=== PATIENT | female | born 1975 | race African-American/Black ===

== ENCOUNTER 2016-08-19 07:22 | Inpatient (IN) | payer MEDICAID ==
[~2016-08-19] VITALS: Ht 162.6 cm; Wt 63.3 kg
[2016-08-19 08:30] LABS: Basophils # (auto) 0 uL; Basophils % (auto) 0.1 % (0.0-2.0); Eosinophils # (auto) 0 uL; Eosinophils % (auto) 0.2 % (0.0-7.0); Hematocrit 44.9 % (36.0-46.0); Hemoglobin 14.6 g/dL (12.2-16.2); Lymphocytes # (auto) 2.4 uL; Lymphocytes % (auto) 15.3 % (10.0-50.0); Mean Corpuscular Hemoglobin 30.6 pg (28.0-32.0); Mean Corpuscular Hgb Conc. 32.5 g/dL (32.0-36.0); Mean Corpuscular Volume 94.3 fL (80.0-100.0); Mean Platelet Volume 7.9 fL (7.4-10.4); Monocytes # (auto) 0.8 uL; Neutrophils # (auto) 12.6 uL; Neutrophils % (auto) 79.4 % (37.0-80.0); Platelet Count (auto) 374 10^3/uL (140-450); Red Cell Distribution Width 13.6 % (11.6-16.0); White Blood Cell 15.9 10^3/uL (4.4-10.8)
[2016-08-19 08:48] LABS: Albumin 4.2 g/dL (3.4-5.0); BUN/Creatinine Ratio 12.3; Calcium 8.8 mg/dL (8.5-10.1); Magnesium 2.3 mg/dL (1.6-2.6); Potassium 4.1 mmol/L (3.5-5.1)
[2016-08-19 08:51] LABS: Bilirubin, Total 0.8 mg/dL (0.2-1.0); Total Protein 8.5 g/dL (6.4-8.2)
[2016-08-19] MEDS ORDERED: PANTOPRAZOLE SODIUM 40 MG/10 ML VIAL IV ONE (11:30)
[2016-08-19] MEDS ORDERED: LEVOFLOXACIN 500MG 100 ML IV ONE (11:30)
[2016-08-19] MEDS ORDERED: SODIUM CHLORIDE 0.9% 1,000 ML IV ONE ×2 (11:30)
[2016-08-19] MEDS ORDERED: HYDROmorphone HCL 2 MG/ML VL IV ONE (11:30)
[2016-08-19] MEDS ORDERED: ONDANSETRON HCL 4 MG/2 ML VIAL IV ONE (11:30)
[2016-08-19 11:51] LABS: Urine Bilirubin Negative (Negative); Urine Color Yellow (Yellow); Urine Glucose Normal (Normal); Urine Mucus FEW (None Seen); Urine Nitrite Negative (Negative); Urine RBC 3 /hpf (0 - 4); Urine Squamous Epithelial Cell FEW /hpf (<5); Urine Urobilinogen Normal (Negative); Urine pH 5.5 (5.0-8.0)
[2016-08-19 11:53] LABS: Urine Blood 2+ /uL (Negative); Urine Ketone 4+ (Negative)
[2016-08-19] MEDS ORDERED: chlordiazePOXIDE HCL 25 MG CAP PO PRN (13:45)
[2016-08-19] MEDS: SODIUM CHLORIDE 0.9% 1,000 ML IV SCH ×2 (13:47→22:26)
[2016-08-19] MEDS ORDERED: TEMAZEPAM 15 MG CAP PO PRN (14:00)
[2016-08-19] MEDS ORDERED: NITROGLYCERIN 0.4 MG SL TAB SL PRN (14:00)
[2016-08-19] MEDS ORDERED: MORPHINE SULF INJ 2 MG/ML SYRINGE 1ML IV PRN (14:00)
[2016-08-19] MEDS ORDERED: PHYTONADIONE (VIT K)10 MG/ML 1ML VIAL SUBCUT ONE (14:00)
[2016-08-19] MEDS ORDERED: ONDANSETRON HCL 4 MG/2 ML VIAL IV PRN (14:00)
[2016-08-19] MEDS ORDERED: DOCUSATE SOD 100 MG CAP PO PRN (14:00)
[2016-08-19] MEDS ORDERED: ACETAMINOPHEN 325 MG TAB PO PRN (14:00)
[2016-08-19] MEDS: metroNIDAZOLE 500MG/100ML 100 ML IV SCH ×2 (14:51→22:25)
[2016-08-19] MEDS ORDERED: THIAMINE INJ 100 MG, MULTIPLE VITAMIN 10 ML, FOLIC ACID 1 MG, MAGNESIUM SULF SDV 50% 8 ... IV ONE ×5 (15:00)
[2016-08-19] MEDS: MORPHINE SULF INJ 2 MG/ML SYRINGE 1ML IV PRN ×2 (16:29→20:55)
[2016-08-19 16:57] VITALS: BP 125/79
[2016-08-19 22:00] VITALS: BP 129/84
[2016-08-19] MEDS: FAMOTIDINE 20 MG TAB PO SCH (22:25)
[2016-08-20] MEDS: MORPHINE SULF INJ 2 MG/ML SYRINGE 1ML IV PRN ×5 (02:16→23:18)
[2016-08-20] MEDS ORDERED: INFLUENZA QUAD 2016-2017 0.5 ML SYRG IM ONE (02:45)
[2016-08-20 05:00] VITALS: BP 112/72
[2016-08-20] MEDS: SODIUM CHLORIDE 0.9% 1,000 ML IV SCH ×3 (05:01→23:19)
[2016-08-20] MEDS: metroNIDAZOLE 500MG/100ML 100 ML IV SCH ×3 (05:42→21:31)
[2016-08-20 06:31] LABS: Basophils # (auto) 0 uL; Basophils % (auto) 0.3 % (0.0-2.0); Eosinophils # (auto) 0.1 uL; Eosinophils % (auto) 0.9 % (0.0-7.0); Hematocrit 35.5 % (36.0-46.0); Hemoglobin 11.9 g/dL (12.2-16.2); Lymphocytes # (auto) 1.8 uL; Lymphocytes % (auto) 21.1 % (10.0-50.0); Mean Corpuscular Hgb Conc. 33.4 g/dL (32.0-36.0); Mean Corpuscular Volume 92.7 fL (80.0-100.0); Mean Platelet Volume 8.1 fL (7.4-10.4); Monocytes # (auto) 0.6 uL; Monocytes % (auto) 6.6 % (0.0-12.0); Neutrophils # (auto) 6.2 uL; Neutrophils % (auto) 71.1 % (37.0-80.0); Platelet Count (auto) 310 10^3/uL (140-450); Red Cell Distribution Width 13.8 % (11.6-16.0); White Blood Cell 8.6 10^3/uL (4.4-10.8)
[2016-08-20 06:43] LABS: Albumin 3.3 g/dL (3.4-5.0); BUN/Creatinine Ratio 11.1; Bilirubin, Total 0.8 mg/dL (0.2-1.0); Potassium 4.3 mmol/L (3.5-5.1); Total Protein 6.3 g/dL (6.4-8.2)
[2016-08-20 09:00] VITALS: BP 116/84
[2016-08-20] MEDS: LEVOFLOXACIN 500MG 100 ML IV SCH (10:57)
[2016-08-20] MEDS: FAMOTIDINE 20 MG TAB PO SCH ×2 (10:57→21:31)
[2016-08-20] MEDS: MULTIPLE VITAMIN TAB PO SCH (10:57)
[2016-08-20 13:00] VITALS: BP 125/85
[2016-08-20] MEDS: HYDROcodone-ACET 5/325MG TAB PO PRN ×2 (16:14→20:49)
[2016-08-20 16:44] LABS: Amylase 81 U/L (25-115)
[2016-08-20 17:03] VITALS: BP 115/80
[2016-08-20 22:00] VITALS: BP 113/78
[2016-08-21] MEDS: MORPHINE SULF INJ 2 MG/ML SYRINGE 1ML IV PRN (04:27)
[2016-08-21 05:00] VITALS: BP 130/80
[2016-08-21] MEDS: metroNIDAZOLE 500MG/100ML 100 ML IV SCH (06:17)
[2016-08-21 06:44] LABS: Basophils # (auto) 0 uL; Basophils % (auto) 0.5 % (0.0-2.0); Eosinophils # (auto) 0.1 uL; Eosinophils % (auto) 1.3 % (0.0-7.0); Hematocrit 34.9 % (36.0-46.0); Hemoglobin 11.4 g/dL (12.2-16.2); Lymphocytes % (auto) 25.8 % (10.0-50.0); Mean Corpuscular Hemoglobin 30.5 pg (28.0-32.0); Mean Corpuscular Hgb Conc. 32.6 g/dL (32.0-36.0); Mean Corpuscular Volume 93.6 fL (80.0-100.0); Mean Platelet Volume 7.9 fL (7.4-10.4); Monocytes # (auto) 0.7 uL; Monocytes % (auto) 8.7 % (0.0-12.0); Neutrophils # (auto) 4.8 uL; Neutrophils % (auto) 63.7 % (37.0-80.0); Platelet Count (auto) 308 10^3/uL (140-450); Red Cell Distribution Width 13.9 % (11.6-16.0); White Blood Cell 7.6 10^3/uL (4.4-10.8)
[2016-08-21 07:11] LABS: Albumin 3.4 g/dL (3.4-5.0); BUN/Creatinine Ratio 5.9; Bilirubin, Total 0.9 mg/dL (0.2-1.0); Calcium 8.4 mg/dL (8.5-10.1); Potassium 4.3 mmol/L (3.5-5.1); Total Protein 6.5 g/dL (6.4-8.2)
[2016-08-21] MEDS: SODIUM CHLORIDE 0.9% 1,000 ML IV SCH (07:27)
[2016-08-21] MEDS: LEVOFLOXACIN 500MG 100 ML IV SCH (10:00)
[2016-08-21] MEDS: HYDROcodone-ACET 5/325MG TAB PO PRN (10:20)
[2016-08-21] MEDS: FAMOTIDINE 20 MG TAB PO SCH (10:21)
[2016-08-21] MEDS: MULTIPLE VITAMIN TAB PO SCH (10:21)
[2016-08-21 10:58] VITALS: BP 91/71
== END 2016-08-21 11:41 | disposition home or self-care (01) | DRG 282 ==
LOC: EDAGE 07:22 → EDUNIT# 07:22 → ER 07:30 → TELE 07:31 → TELE-EAST 16:11
PROVIDERS: ADMIT Internal Medicine; ATTEND Internal Medicine
DX: K85.90 Acute pancreatitis without necrosis or infection, unspecified (principal); R18.8 Other ascites; Z88.0 Allergy status to penicillin; E87.1 Hypo-osmolality and hyponatremia; N39.0 Urinary tract infection, site not specified; F17.210 Nicotine dependence, cigarettes, uncomplicated; Z90.49 Acquired absence of other specified parts of digestive tract; Z82.49 Family history of ischemic heart disease and other diseases of the circulatory system; Z84.89 Family history of other specified conditions; F10.239 Alcohol dependence with withdrawal, unspecified
CPT/HCPCS: 36415; 74176; 80053; 80320; 81001; 81025; 82150; 83605; 83690; 83735; 85025; 87086; 93306; 96361; 96365; 96367; 96372; 96375; 99291; C9113; J1956; J2405; J3430; J3490

== ENCOUNTER 2018-01-07 14:33 | Inpatient (IN) | payer MEDICAID ==
[~2018-01-07] VITALS: Ht 162.6 cm; Wt 77.4 kg
[2018-01-07] MEDS ORDERED: PANTOPRAZOLE 40 MG/10 ML VIAL IV STA (14:42)
[2018-01-07] MEDS ORDERED: SODIUM CHLORIDE 0.9% 500 ML IVB ONE (14:42)
[2018-01-07] MEDS ORDERED: HYDROmorphone HCL 2 MG/ML VL IV ONE (14:45)
[2018-01-07] MEDS ORDERED: ONDANSETRON HCL 4 MG/2 ML VIAL IV ONE (14:45)
[2018-01-07 15:14] LABS: Basophils # (auto) 0.3 uL; Basophils % (auto) 1.5 % (0.0-2.0); Eosinophils # (auto) 0 uL; Eosinophils % (auto) 0.1 % (0.0-7.0); Hematocrit 44.4 % (36.0-46.0); Hemoglobin 14.6 g/dL (12.2-16.2); Lymphocytes # (auto) 0.9 uL; Lymphocytes % (auto) 5.3 % (10.0-50.0); Mean Corpuscular Hemoglobin 28.7 pg (28.0-32.0); Mean Corpuscular Hgb Conc. 32.9 g/dL (32.0-36.0); Mean Corpuscular Volume 87.2 fL (80.0-100.0); Monocytes # (auto) 0.4 uL; Monocytes % (auto) 2.5 % (0.0-12.0); Neutrophils # (auto) 15.9 uL; Neutrophils % (auto) 90.6 % (37.0-80.0); Nucleated Red Blood Cells % 0.1 %; Platelet Count (auto) 384 10^3/uL (140-450); Red Blood Cells 5.09 10^6/uL (4.0-5.20); Red Cell Distribution Width 15.1 % (11.8-14.3); White Blood Cell 17.5 10^3/uL (4.4-10.8)
[2018-01-07 15:37] LABS: Albumin 3.9 g/dL (3.4-5.0); Bilirubin, Total 2.8 mg/dL (0.2-1.0); Magnesium 2.4 mg/dL (1.6-2.6); Potassium 5.5 mmol/L (3.5-5.1); Total Protein 8.1 g/dL (6.4-8.2)
[2018-01-07] MEDS ORDERED: SODIUM POLYSTYRENE SULF 15GM/60ML SUSP PO ONE (19:30)
[2018-01-07] MEDS ORDERED: DEXTROSE (50%) 50ML SYRG IV PRN (19:30)
[2018-01-07] MEDS ORDERED: LEVOFLOXACIN 500MG 100 ML IV ONE (19:30)
[2018-01-07] MEDS ORDERED: TEMAZEPAM 15 MG CAP PO PRN (19:45)
[2018-01-07] MEDS ORDERED: ACETAMINOPHEN 325 MG TAB PO PRN (19:45)
[2018-01-07] MEDS ORDERED: MORPHINE SULFATE 8mg/ml INJ SDV IV PRN (19:45)
[2018-01-07] MEDS ORDERED: NITROGLYCERIN 0.4 MG SL TAB SL PRN (19:45)
[2018-01-07] MEDS: MORPHINE SULFATE 8mg/ml INJ SDV IV PRN (20:09)
[2018-01-07] MEDS: SODIUM CHLORIDE 0.9% 1,000 ML IV SCH (20:10)
[2018-01-07] MEDS: ONDANSETRON HCL 4 MG/2 ML VIAL IV PRN (20:10)
[2018-01-07 21:30] VITALS: BP 128/85
[2018-01-07 21:56] VITALS: BP 128/85
[2018-01-07] MEDS: ACCU-CHEK COMFORT CURVE STRIP VI SCH (22:00)
[2018-01-07] MEDS: traZODone HCL 50 MG TAB PO SCH (22:36)
[2018-01-07] MEDS: FAMOTIDINE 20 MG TAB PO SCH (22:36)
[2018-01-07] MEDS: InsuLIN REG 1unit/0.01ml Soln (100units/ml) SC SCH (22:41)
[2018-01-08] MEDS: ONDANSETRON HCL 4 MG/2 ML VIAL IV PRN ×5 (00:25→21:54)
[2018-01-08] MEDS: MORPHINE SULFATE 8mg/ml INJ SDV IV PRN ×5 (00:26→21:38)
[2018-01-08 04:37] VITALS: BP 127/72
[2018-01-08] MEDS: SODIUM CHLORIDE 0.9% 1,000 ML IV SCH ×3 (05:15→21:26)
[2018-01-08 05:46] LABS: Urine Bacteria FEW /hpf (None Seen); Urine Blood 2+ /uL (Negative); Urine Budding Yeast OCCASIONAL /hpf (None Seen); Urine Hyaline Cast FEW /lpf (0 - 2); Urine Mucus FEW (None Seen); Urine Specific Gravity 1.023 (1.001-1.035); Urine WBC 11 /hpf (0 - 5)
[2018-01-08] MEDS: ACCU-CHEK COMFORT CURVE STRIP VI SCH ×4 (06:14→21:25)
[2018-01-08] MEDS: InsuLIN REG 1unit/0.01ml Soln (100units/ml) SC SCH ×4 (06:14→21:27)
[2018-01-08 06:38] LABS: Basophils # (auto) 0 uL; Basophils % (auto) 0.1 % (0.0-2.0); Eosinophils # (auto) 0 uL; Eosinophils % (auto) 0.1 % (0.0-7.0); Hematocrit 39.3 % (36.0-46.0); Hemoglobin 13.2 g/dL (12.2-16.2); Lymphocytes # (auto) 1.6 uL; Lymphocytes % (auto) 10.1 % (10.0-50.0); Mean Corpuscular Hemoglobin 29.2 pg (28.0-32.0); Mean Corpuscular Hgb Conc. 33.6 g/dL (32.0-36.0); Mean Corpuscular Volume 86.8 fL (80.0-100.0); Monocytes % (auto) 5.9 % (0.0-12.0); Neutrophils # (auto) 13.4 uL; Neutrophils % (auto) 83.8 % (37.0-80.0); Platelet Count (auto) 378 10^3/uL (140-450); Red Blood Cells 4.53 10^6/uL (4.0-5.20); Red Cell Distribution Width 14.8 % (11.8-14.3)
[2018-01-08 06:57] LABS: Potassium 3.7 mmol/L (3.5-5.1)
[2018-01-08 07:01] LABS: Albumin 3.4 g/dL (3.4-5.0); BUN/Creatinine Ratio 10.1; Calcium 8.1 mg/dL (8.5-10.1)
[2018-01-08 07:05] LABS: Bilirubin, Total 3.7 mg/dL (0.2-1.0); Total Protein 7.2 g/dL (6.4-8.2)
[2018-01-08 09:00] VITALS: BP 139/83
[2018-01-08] MEDS: FAMOTIDINE 20 MG TAB PO SCH ×2 (10:05→21:25)
[2018-01-08] MEDS: MULTIPLE VITAMIN TAB PO SCH (10:05)
[2018-01-08] MEDS: LEVOFLOXACIN 500MG 100 ML IV SCH (10:06)
[2018-01-08] MEDS: HYDROcodone-ACET 5/325MG TAB PO PRN ×2 (11:56→19:55)
[2018-01-08 12:10] VITALS: BP 130/78
[2018-01-08 17:10] VITALS: BP 130/92
[2018-01-08] MEDS: DOCUSATE SOD 100 MG CAP PO PRN (19:55)
[2018-01-08] MEDS: traZODone HCL 50 MG TAB PO SCH (21:25)
[2018-01-08 22:00] VITALS: BP 132/74
[2018-01-09] MEDS: HYDROcodone-ACET 5/325MG TAB PO PRN ×4 (00:58→21:26)
[2018-01-09 05:00] VITALS: BP 133/72
[2018-01-09] MEDS: SODIUM CHLORIDE 0.9% 1,000 ML IV SCH ×3 (06:15→23:22)
[2018-01-09] MEDS: InsuLIN REG 1unit/0.01ml Soln (100units/ml) SC SCH ×4 (06:15→22:00)
[2018-01-09] MEDS: ACCU-CHEK COMFORT CURVE STRIP VI SCH ×4 (06:16→23:23)
[2018-01-09 06:24] LABS: Basophils # (auto) 0 uL; Basophils % (auto) 0.4 % (0.0-2.0); Eosinophils # (auto) 0.1 uL; Hematocrit 37.7 % (36.0-46.0); Hemoglobin 12.7 g/dL (12.2-16.2); Lymphocytes # (auto) 2.5 uL; Lymphocytes % (auto) 24.2 % (10.0-50.0); Mean Corpuscular Hemoglobin 29.5 pg (28.0-32.0); Mean Corpuscular Hgb Conc. 33.7 g/dL (32.0-36.0); Mean Corpuscular Volume 87.5 fL (80.0-100.0); Monocytes # (auto) 0.7 uL; Monocytes % (auto) 6.8 % (0.0-12.0); Neutrophils % (auto) 67.6 % (37.0-80.0); Nucleated Red Blood Cells % 0.1 %; Platelet Count (auto) 354 10^3/uL (140-450); Red Blood Cells 4.31 10^6/uL (4.0-5.20); Red Cell Distribution Width 14.7 % (11.8-14.3); White Blood Cell 10.4 10^3/uL (4.4-10.8)
[2018-01-09 06:41] LABS: Potassium 3.7 mmol/L (3.5-5.1)
[2018-01-09 06:50] LABS: BUN/Creatinine Ratio 4.8; Calcium 8.1 mg/dL (8.5-10.1)
[2018-01-09 07:45] VITALS: BP 133/72
[2018-01-09] MEDS: MORPHINE SULFATE 8mg/ml INJ SDV IV PRN (08:16)
[2018-01-09] MEDS: ONDANSETRON HCL 4 MG/2 ML VIAL IV PRN ×3 (08:22→23:24)
[2018-01-09 08:37] VITALS: BP 136/78
[2018-01-09] MEDS: MULTIPLE VITAMIN TAB PO SCH (09:58)
[2018-01-09] MEDS: FAMOTIDINE 20 MG TAB PO SCH ×2 (09:58→23:23)
[2018-01-09] MEDS: LEVOFLOXACIN 500MG 100 ML IV SCH (09:58)
[2018-01-09 13:04] VITALS: BP 120/78
[2018-01-09] MEDS ORDERED: LORazepam 2MG/ML-1ML VIAL IV ONE (16:00)
[2018-01-09 17:00] VITALS: BP 128/87
[2018-01-09] MEDS: DOCUSATE SOD 100 MG CAP PO PRN (17:57)
[2018-01-09] MEDS ORDERED: MORPHINE SULFATE 10 MG/ML INJ 1ML SDV IV PRN (18:00)
[2018-01-09] MEDS: MORPHINE SULFATE 10 MG/ML INJ 1ML SDV IV PRN ×2 (18:40→23:26)
[2018-01-09 22:00] VITALS: BP 124/80
[2018-01-09] MEDS: traZODone HCL 50 MG TAB PO SCH (23:22)
[2018-01-10] MEDS: HYDROcodone-ACET 5/325MG TAB PO PRN (02:38)
[2018-01-10 05:00] VITALS: BP 110/75
[2018-01-10 06:09] LABS: Basophils # (auto) 0 uL; Basophils % (auto) 0.5 % (0.0-2.0); Eosinophils # (auto) 0.1 uL; Eosinophils % (auto) 0.8 % (0.0-7.0); Hemoglobin 12.3 g/dL (12.2-16.2); Lymphocytes # (auto) 1.8 uL; Lymphocytes % (auto) 17.7 % (10.0-50.0); Mean Corpuscular Hemoglobin 28.9 pg (28.0-32.0); Mean Corpuscular Hgb Conc. 33.2 g/dL (32.0-36.0); Mean Corpuscular Volume 86.9 fL (80.0-100.0); Monocytes # (auto) 0.4 uL; Monocytes % (auto) 4.2 % (0.0-12.0); Neutrophils # (auto) 7.8 uL; Neutrophils % (auto) 76.8 % (37.0-80.0); Platelet Count (auto) 325 10^3/uL (140-450); Red Blood Cells 4.26 10^6/uL (4.0-5.20); Red Cell Distribution Width 14.5 % (11.8-14.3); White Blood Cell 10.1 10^3/uL (4.4-10.8)
[2018-01-10 06:31] LABS: Albumin 3.1 g/dL (3.4-5.0); BUN/Creatinine Ratio 5.3; Bilirubin, Total 4.8 mg/dL (0.2-1.0); Calcium 8.2 mg/dL (8.5-10.1); Potassium 3.8 mmol/L (3.5-5.1); Total Protein 6.4 g/dL (6.4-8.2)
[2018-01-10] MEDS: InsuLIN REG 1unit/0.01ml Soln (100units/ml) SC SCH ×4 (06:50→22:00)
[2018-01-10] MEDS: ACCU-CHEK COMFORT CURVE STRIP VI SCH ×4 (06:50→22:15)
[2018-01-10] MEDS: SODIUM CHLORIDE 0.9% 1,000 ML IV SCH ×2 (06:50→14:43)
[2018-01-10] MEDS: ONDANSETRON HCL 4 MG/2 ML VIAL IV PRN (08:15)
[2018-01-10] MEDS: MORPHINE SULFATE 10 MG/ML INJ 1ML SDV IV PRN ×3 (08:15→20:31)
[2018-01-10] MEDS: MULTIPLE VITAMIN TAB PO SCH (09:34)
[2018-01-10] MEDS: FAMOTIDINE 20 MG TAB PO SCH ×2 (09:34→20:30)
[2018-01-10] MEDS: LEVOFLOXACIN 500MG 100 ML IV SCH (09:34)
[2018-01-10 09:43] VITALS: BP 122/72
[2018-01-10 13:26] VITALS: BP 110/79
[2018-01-10 17:09] VITALS: BP 129/90
[2018-01-10] MEDS: traZODone HCL 50 MG TAB PO SCH (20:30)
[2018-01-10 22:00] VITALS: BP 115/82
[2018-01-11] MEDS: MORPHINE SULFATE 10 MG/ML INJ 1ML SDV IV PRN ×3 (01:18→23:34)
[2018-01-11] MEDS: SODIUM CHLORIDE 0.9% 1,000 ML IV SCH ×4 (01:18→23:34)
[2018-01-11 05:00] VITALS: BP 127/82
[2018-01-11 06:06] LABS: Basophils # (auto) 0 uL; Basophils % (auto) 0.3 % (0.0-2.0); Eosinophils # (auto) 0.2 uL; Hematocrit 35.1 % (36.0-46.0); Lymphocytes # (auto) 2.6 uL; Lymphocytes % (auto) 24.3 % (10.0-50.0); Mean Corpuscular Hemoglobin 29.5 pg (28.0-32.0); Mean Corpuscular Volume 86.7 fL (80.0-100.0); Monocytes # (auto) 0.7 uL; Monocytes % (auto) 6.6 % (0.0-12.0); Neutrophils # (auto) 7.2 uL; Neutrophils % (auto) 66.8 % (37.0-80.0); Nucleated Red Blood Cells % 0.1 %; Platelet Count (auto) 320 10^3/uL (140-450); Red Blood Cells 4.06 10^6/uL (4.0-5.20); Red Cell Distribution Width 14.7 % (11.8-14.3); White Blood Cell 10.8 10^3/uL (4.4-10.8)
[2018-01-11 06:25] LABS: Potassium 3.5 mmol/L (3.5-5.1)
[2018-01-11] MEDS: ACCU-CHEK COMFORT CURVE STRIP VI SCH ×4 (06:28→22:00)
[2018-01-11] MEDS: InsuLIN REG 1unit/0.01ml Soln (100units/ml) SC SCH ×4 (06:28→22:00)
[2018-01-11 06:33] LABS: Albumin 2.9 g/dL (3.4-5.0); BUN/Creatinine Ratio 3.9; Bilirubin, Total 3.2 mg/dL (0.2-1.0); Calcium 8.3 mg/dL (8.5-10.1); Total Protein 6.3 g/dL (6.4-8.2)
[2018-01-11 09:00] VITALS: BP 105/59
[2018-01-11] MEDS: LEVOFLOXACIN 500MG 100 ML IV SCH (10:43)
[2018-01-11] MEDS: FAMOTIDINE 20 MG TAB PO SCH ×2 (10:44→23:32)
[2018-01-11] MEDS: MULTIPLE VITAMIN TAB PO SCH (10:44)
[2018-01-11] MEDS: HYDROcodone-ACET 5/325MG TAB PO PRN ×2 (10:44→15:13)
[2018-01-11 13:00] VITALS: BP 120/86
[2018-01-11 17:00] VITALS: BP 118/79
[2018-01-11 22:00] VITALS: BP 119/68
[2018-01-11] MEDS: traZODone HCL 50 MG TAB PO SCH (23:33)
[2018-01-12 05:00] VITALS: BP 108/63
[2018-01-12 05:18] LABS: Basophils # (auto) 0 uL; Basophils % (auto) 0.4 % (0.0-2.0); Eosinophils # (auto) 0.2 uL; Eosinophils % (auto) 1.8 % (0.0-7.0); Hematocrit 36.1 % (36.0-46.0); Hemoglobin 12.1 g/dL (12.2-16.2); Lymphocytes # (auto) 3.4 uL; Lymphocytes % (auto) 30.1 % (10.0-50.0); Mean Corpuscular Hemoglobin 29.2 pg (28.0-32.0); Mean Corpuscular Hgb Conc. 33.6 g/dL (32.0-36.0); Mean Corpuscular Volume 86.9 fL (80.0-100.0); Monocytes # (auto) 0.6 uL; Monocytes % (auto) 5.5 % (0.0-12.0); Neutrophils % (auto) 62.2 % (37.0-80.0); Platelet Count (auto) 321 10^3/uL (140-450); Red Blood Cells 4.16 10^6/uL (4.0-5.20); Red Cell Distribution Width 14.9 % (11.8-14.3); White Blood Cell 11.3 10^3/uL (4.4-10.8)
[2018-01-12 05:35] LABS: BUN/Creatinine Ratio 9.3; Bilirubin, Total 1.9 mg/dL (0.2-1.0); Calcium 8.1 mg/dL (8.5-10.1); Potassium 3.4 mmol/L (3.5-5.1); Total Protein 6.5 g/dL (6.4-8.2)
[2018-01-12] MEDS: ACCU-CHEK COMFORT CURVE STRIP VI SCH (07:00)
[2018-01-12] MEDS: InsuLIN REG 1unit/0.01ml Soln (100units/ml) SC SCH (07:00)
[2018-01-12 09:00] VITALS: BP 105/72
[2018-01-12] MEDS: MULTIPLE VITAMIN TAB PO SCH (11:14)
[2018-01-12] MEDS: HYDROcodone-ACET 5/325MG TAB PO PRN (11:15)
[2018-01-12] MEDS: FAMOTIDINE 20 MG TAB PO SCH (11:15)
[2018-01-12 11:33] VITALS: BP 105/72
[2018-01-12 13:00] VITALS: BP 121/59
== END 2018-01-12 14:34 | disposition home or self-care (01) | DRG 282 ==
LOC: EDBD 14:33 → ER 14:33 → EDUNIT# 14:33 → TELE 14:34 → TELE-WESTW 20:58 → WEST WING 01-10 23:56
PROVIDERS: ADMIT Internal Medicine; ATTEND Internal Medicine
DX: K85.20 Alcohol induced acute pancreatitis without necrosis or infection (principal); E11.21 Type 2 diabetes mellitus with diabetic nephropathy; E11.65 Type 2 diabetes mellitus with hyperglycemia; E87.5 Hyperkalemia; K86.89 Other specified diseases of pancreas; E87.1 Hypo-osmolality and hyponatremia; E11.22 Type 2 diabetes mellitus with diabetic chronic kidney disease; F17.210 Nicotine dependence, cigarettes, uncomplicated; F41.9 Anxiety disorder, unspecified; N18.2 Chronic kidney disease, stage 2 (mild); F32.9 Major depressive disorder, single episode, unspecified; R94.5 Abnormal results of liver function studies; Z88.0 Allergy status to penicillin; Z90.49 Acquired absence of other specified parts of digestive tract
CPT/HCPCS: 36415; 74176; 74181; 80048; 80053; 81001; 82150; 82962; 83036; 83690; 83735; 85025; 87086; 94761; 96374; 96375; C9113; J1815; J1956; J2270; J2405

== ENCOUNTER 2018-08-28 14:56 | Inpatient (IN) | payer MEDICAID | END 2018-08-30 01:00 | disposition short-term general hospital (02) | LOC: ER 14:56 → OVERFLOW 20:42 → EAST 23:29 | DX: K85.20 Alcohol induced acute pancreatitis without necrosis or infection (principal) ==

== ENCOUNTER 2018-09-29 21:11 | Emergency (ER) | payer MEDICAID ==
[~2018-09-29] VITALS: Ht 165.1 cm; Wt 68.0 kg
[~2018-09-29 21:11] MED LIST: HYDR-3682 PO; IBUP800T24 PO; METF-370 PO; METH750T3 PO
[2018-09-29] MEDS ORDERED: SODIUM CHLORIDE 0.9% 1,000 ML IVB ONE (21:54)
[2018-09-29 21:58] LABS: Basophils # (auto) 0.1 uL; Basophils % (auto) 0.5 % (0.0-2.0); Eosinophils # (auto) 0.1 uL; Eosinophils % (auto) 0.4 % (0.0-7.0); Hematocrit 40.1 % (36.0-46.0); Hemoglobin 13.2 g/dL (12.2-16.2); Lymphocytes # (auto) 4.1 uL; Lymphocytes % (auto) 29.6 % (10.0-50.0); Mean Corpuscular Hemoglobin 27.7 pg (28.0-32.0); Mean Corpuscular Hgb Conc. 32.9 g/dL (32.0-36.0); Mean Corpuscular Volume 84.4 fL (80.0-100.0); Monocytes # (auto) 0.9 uL; Monocytes % (auto) 6.4 % (0.0-12.0); Neutrophils # (auto) 8.7 uL; Neutrophils % (auto) 63.1 % (37.0-80.0); Platelet Count (auto) 386 10^3/uL (140-450); Red Blood Cells 4.74 10^6/uL (4.0-5.20); Red Cell Distribution Width 14.1 % (11.8-14.3); White Blood Cell 13.8 10^3/uL (4.4-10.8)
[2018-09-29] MEDS ORDERED: HYDROmorphone HCL 2 MG/ML VL IV ONE (22:00)
[2018-09-29] MEDS ORDERED: ONDANSETRON HCL 4 MG/2 ML VIAL IV ONE (22:00)
[2018-09-29 22:19] LABS: Albumin 3.5 g/dL (3.4-5.0); Calcium 8.5 mg/dL (8.5-10.1); Potassium 3.4 mmol/L (3.5-5.1)
[2018-09-29 22:22] LABS: BUN/Creatinine Ratio 7.1; Bilirubin, Total 0.5 mg/dL (0.2-1.0); Total Protein 7.4 g/dL (6.4-8.2)
[2018-09-29 23:01] LABS: INR 0.94 (0.9-1.15); Partial Thromboplastin Time 25.3 sec (23.78-33.04); Prothrombin Time 10.1 sec (9.27-12.13)
[2018-09-29 23:31] LABS: Urine Bacteria MANY /hpf (None Seen); Urine Blood 3+ /uL (Negative); Urine Mucus FEW (None Seen); Urine Specific Gravity 1.007 (1.001-1.035); Urine WBC 46 /hpf (0 - 5)
[2018-09-30] MEDS ORDERED: cefTRIAXone 1GM/50ML D5W 50 ML IV ONE
[2018-09-30 01:00] VITALS: BP 128/84
== END 2018-09-30 01:04 | disposition home or self-care (01) ==
LOC: EDBD 21:11 → ER 21:13
DX: K86.1 Other chronic pancreatitis (principal); N39.0 Urinary tract infection, site not specified; F17.210 Nicotine dependence, cigarettes, uncomplicated; F41.9 Anxiety disorder, unspecified; Z90.49 Acquired absence of other specified parts of digestive tract; Z88.0 Allergy status to penicillin
CPT/HCPCS: 36415; 74176; 80053; 81001; 81025; 82150; 83690; 83735; 85025; 85610; 85730; 96361; 96365; 96375; 99284; J0696; J1170; J2405; J7030

== ENCOUNTER 2019-03-24 20:53 | Emergency (ER) | payer MEDICAID ==
[~2019-03-24] VITALS: Ht 162.6 cm; Wt 69.4 kg
[2019-03-24 22:10] LABS: Basophils # (auto) 0.2 uL; Basophils % (auto) 1.3 % (0.0-2.0); Eosinophils # (auto) 0.1 uL; Hematocrit 37.5 % (36.0-46.0); Hemoglobin 12.4 g/dL (12.2-16.2); Lymphocytes # (auto) 3.7 uL; Lymphocytes % (auto) 26.4 % (10.0-50.0); Mean Corpuscular Hemoglobin 27.8 pg (28.0-32.0); Mean Corpuscular Hgb Conc. 33.1 g/dL (32.0-36.0); Mean Corpuscular Volume 84.1 fL (80.0-100.0); Monocytes # (auto) 0.6 uL; Monocytes % (auto) 4.2 % (0.0-12.0); Neutrophils # (auto) 9.3 uL; Neutrophils % (auto) 67.1 % (37.0-80.0); Platelet Count (auto) 403 10^3/uL (140-450); Red Blood Cells 4.46 10^6/uL (4.0-5.20); White Blood Cell 13.8 10^3/uL (4.4-10.8)
[2019-03-24 22:30] LABS: Albumin 3.7 g/dL (3.4-5.0); BUN/Creatinine Ratio 8.7; Calcium 8.8 mg/dL (8.5-10.1); Potassium 3.6 mmol/L (3.5-5.1)
[2019-03-24] MEDS ORDERED: MORPHINE SULFATE 4 MG/ML SYR/VIAL IV ONE (22:30)
[2019-03-24] MEDS ORDERED: ONDANSETRON HCL 4 MG/2 ML VIAL IV ONE (22:30)
[2019-03-24 22:32] LABS: Bilirubin, Total 0.4 mg/dL (0.2-1.0); Total Protein 7.4 g/dL (6.4-8.2)
[2019-03-24 23:09] LABS: Urine Bacteria FEW /hpf (None Seen); Urine Blood 2+ /uL (Negative); Urine Mucus FEW (None Seen); Urine Specific Gravity 1.008 (1.001-1.035); Urine WBC 7 /hpf (0 - 5)
[2019-03-25] MEDS ORDERED: LACTULOSE 20Gm/30ML SOLN PO ONE (01:15)
[2019-03-25 02:00] VITALS: BP 110/76
== END 2019-03-25 02:29 | disposition home or self-care (01) ==
LOC: EDUNIT# 20:53 → EDBD 20:53 → ER 20:59
DX: K29.70 Gastritis, unspecified, without bleeding (principal); E11.9 Type 2 diabetes mellitus without complications; I10 Essential (primary) hypertension; F17.210 Nicotine dependence, cigarettes, uncomplicated; Z90.49 Acquired absence of other specified parts of digestive tract; Z88.0 Allergy status to penicillin; Z88.8 Allergy status to other drugs, medicaments and biological substances; Z79.84 Long term (current) use of oral hypoglycemic drugs; Z79.899 Other long term (current) drug therapy
CPT/HCPCS: 36415; 74176; 80053; 81001; 83690; 85025; 93005; 96374; 96375; 99284; J2270; J2405; J7030

== ENCOUNTER 2020-12-30 22:44 | Emergency (ER) | payer MEDICAID ==
[~2020-12-30] VITALS: Ht 177.8 cm; Wt 65.8 kg
[~2020-12-30 22:44] MED LIST changes: -IBUP800T24 PO; +IBUP800T27 PO; +METH750T22 PO; -METH750T3 PO
[2020-12-31 00:43] LABS: Hematocrit 36.1 % (36.0-46.0); White Blood Cell 16.2 10^3/uL (4.4-10.8)
[2020-12-31 00:48] LABS: Basophils # (auto) 0.1 10 ^3/uL (0-0.2); Basophils % (auto) 0.6 % (0.0-2.0); Eosinophils # (auto) 0.1 10 ^3/uL (0-0.8); Eosinophils % (auto) 0.5 % (0.0-7.0); Hemoglobin 12.1 g/dL (12.2-16.2); Lymphocytes % (auto) 24.7 % (10.0-50.0); Mean Corpuscular Hemoglobin 28.6 pg (28.0-32.0); Mean Corpuscular Hgb Conc. 33.4 g/dL (32.0-36.0); Mean Corpuscular Volume 85.5 fL (80.0-100.0); Monocytes # (auto) 0.8 10 ^3/uL (0-1.3); Monocytes % (auto) 4.8 % (0.0-12.0); Neutrophils # (auto) 11.3 10 ^3/uL (1.6-8.6); Neutrophils % (auto) 69.4 % (37.0-80.0); Platelet Count (auto) 421 10^3/uL (140-450); Red Blood Cells 4.22 10^6/uL (4.0-5.20); Red Cell Distribution Width 13.8 % (11.8-14.3)
[2020-12-31 00:54] LABS: Albumin 3.7 g/dL (3.4-5.0); BUN/Creatinine Ratio 10.8; Calcium 8.5 mg/dL (8.5-10.1); Magnesium 2.2 mg/dL (1.6-2.6); Potassium 3.4 mmol/L (3.5-5.1)
[2020-12-31 00:57] LABS: Bilirubin, Total 0.7 mg/dL (0.2-1.0); Total Protein 7.3 g/dL (6.4-8.2)
[2020-12-31] MEDS ORDERED: SODIUM CHLORIDE 0.9% 1,000 ML IV ONE (04:15)
[2020-12-31] MEDS ORDERED: FAMOTIDINE (10MG/ML) 2ML VL IV ONE (04:15)
[2020-12-31] MEDS ORDERED: HYDROcodone-ACET 10/325MG TAB PO ONE (05:30)
[2020-12-31 05:53] LABS: Urine Bacteria FEW /hpf (None Seen); Urine Blood 1+ /uL (Negative); Urine Mucus FEW (None Seen); Urine Specific Gravity 1.014 (1.001-1.035); Urine WBC 4 /hpf (0 - 5)
[2020-12-31] MEDS ORDERED: cefTRIAXone 1GM/50ML D5W 50 ML IV ONE (09:00)
[2020-12-31] MEDS ORDERED: POTASSIUM EFFERVESENT TAB 25 MEQ PO ONE (09:00)
[2020-12-31 10:09] VITALS: BP 120/82
== END 2020-12-31 11:27 | disposition home or self-care (01) ==
LOC: EDBD 22:44 → ER 22:46
DX: D72.829 Elevated white blood cell count, unspecified (principal); I10 Essential (primary) hypertension; E11.9 Type 2 diabetes mellitus without complications; F17.210 Nicotine dependence, cigarettes, uncomplicated; Z90.49 Acquired absence of other specified parts of digestive tract; Z88.0 Allergy status to penicillin; Z88.6 Allergy status to analgesic agent; Z79.1 Long term (current) use of non-steroidal anti-inflammatories (NSAID); Z79.899 Other long term (current) drug therapy
CPT/HCPCS: 36415; 74176; 80053; 81001; 81025; 82150; 83605; 83690; 83735; 85025; 96361; 96365; 96375; 99285; J0696; J3490; J7030